=== PATIENT | female | born 1975 | race Caucasian/White ===

== ENCOUNTER → 2020-10-05 | Outpatient (CLI) | payer OTHER ==
--- NOTE | 2020-10-10 10:20 | REP ---
INDICATION: YOVANI DIAG MAMMO/LEFT BREAST LUMP. The patient reports a left breast lump times 10 years which she says has recently gotten larger. COMPARISON: No comparison mammography is available. TECHNIQUE: Bilateral CC and MLO) view(s) were taken. Magnified focal spot-compression images of the left breast are obtained in craniocaudal, mediolateral oblique, and true mediolateral projections. 3D tomography was carried out. Targeted left breast sonography was performed. FINDINGS: Scattered fibroglandular elements are seen bilaterally. No suspicious or dominant density is seen. No microcalcification or architectural distortion is seen. No worrisome skin change is appreciated. 3-D tomosynthesis shows no additional finding. The Vol[place] volumetric breast density pattern is B. Targeted sonography: Heterogeneous fibroglandular background echotexture is seen. Scanning in the area the palpable lump at 9 o'clock shows normal stromal elements. No sonographic target is seen in this location. However, in a slightly different area at approximately 8 o'clock retroareolar, 1.7 cm from the nipple, there is a 5 x 7 x 4 mm complex hypoechoic lesion which may be clustered microcysts or a hypoechoic nodule. There is no internal blood flow visible. This is not a simple cyst.. IMPRESSION: BI-RADS category 4 suspicious left breast ultrasound imaging. Histologic sampling recommended. This patient's Tyrer-Cuzick lifetime breast cancer risk assessment score is 10.3%. This mammogram was interpreted with the aid of an FDA-approved computer-aided detection system. The patient states she had a clinical breast exam in over a year ago. The patient letter being requested is M4. RECOMMENDATION: Ultrasound-guided needle biopsy of the hypoechoic lesion seen at 8 o'clock by ultrasound in the left breast.. <Electronically signed by Rosalino Le > 10/10/20 1016
== END ==
LOC: M WHC 14:53
PROVIDERS: ATTEND Student in an Organized Health Care Education/Training Program
DX: N63.24 Unspecified lump in the left breast, lower inner quadrant (principal)
CPT/HCPCS: 76642; 77066; G0279

== ENCOUNTER → 2022-11-19 | Outpatient (CLI) | payer OTHER | LOC: M PLAIMG 13:39 | PROVIDERS: ATTEND Family Medicine | DX: M25.531 Pain in right wrist (principal); M19.041 Primary osteoarthritis, right hand; M65.831 Other synovitis and tenosynovitis, right forearm ==

== ENCOUNTER → 2023-05-20 | Outpatient (CLI) | payer OTHER | LOC: M SOG 07:52 | PROVIDERS: ATTEND Physician Assistant | DX: M25.531 Pain in right wrist (principal); M79.641 Pain in right hand; M79.642 Pain in left hand ==

== ENCOUNTER → 2023-09-12 | Outpatient (CLI) | payer OTHER ==
[~2023-09-12] MED LIST: BISO5TAB14 PO; FENO54TA2 PO; FURO20TA2 PO; METF10004 PO; PERCOCET PO; RAMI1CAP24 PO; ROSU40TA4 PO; SYNT100T PO; TRUL10IN SC; VENL225T32 PO
== END ==
LOC: M SOG 07:51
PROVIDERS: ATTEND Physician Assistant
DX: M25.532 Pain in left wrist (principal); M79.601 Pain in right arm; Z87.81 Personal history of (healed) traumatic fracture